=== PATIENT | male | born 1975 | race Caucasian/White ===

== ENCOUNTER → 2018-06-08 | Outpatient (CLI) | payer OTHER ==
--- NOTE | 2018-06-08 11:34 | REP ---
Emergency MRI study of the left elbow without contrast: History: Rule out biceps tendon tear, long head. No comparison imaging is available. Technique: Axial, coronal, and sagittal imaging planes are utilized. T1 and T2-weighted scans are included with and without fat saturation. MRI findings: Cortical and medullary bone signal intensity are normal. No fracture is seen. There is no significant joint effusion. There is a complete disruption of the long head of the biceps tendon from its proximal radial insertion. Heterogeneous swelling is seen. There is retraction of redundant biceps tendon up to the musculotendinous junction. There is a nodular area of intermediate T1 low T2 signal intensity material along the course of the tendon located 2.5 cm proximal to the radial tuberosity insertion. This may be a fragment of disrupted tendon or peritendon. The remainder of the redundant tendon is even more proximal. Triceps tendon is unremarkable. Brachialis tendon appears intact. Impression: Complete disruption of the distal biceps tendon with retraction. Electronically Signed by Jack Ross MD 06/08/2018 03:21 P
== END ==
LOC: M RAD 09:19
PROVIDERS: ATTEND Orthopaedic Surgery Sports Medicine
DX: S61.112A Laceration without foreign body of left thumb with damage to nail, initial encounter (principal); W18.30XA Fall on same level, unspecified, initial encounter; Y92.009 Unspecified place in unspecified non-institutional (private) residence as the place of occurrence of the external cause